=== PATIENT | female | born 1985 | race Caucasian/White ===

== ENCOUNTER 2017-05-27 07:32 | Day surgery (SDC) | payer OTHER ==
[~2017-05-27] VITALS: Ht 154.9 cm; Wt 74.9 kg
[~2017-05-27 07:32] MED LIST: ASPI81CH PO; CYCL10 PO; Camila0.35 MG PO; DILT300 PO; HYDR1TAB94 PO; METO25; NIFE10 PO; NIFE30ER PO; ONDA4ODT MM; Omeprazole20 M1
[2017-05-27] MEDS ORDERED: Adipex-P37.5 MG PO (08:26)
[2017-05-27] MEDS ORDERED: Flonase 0.05% N16 GM (08:27)
[2017-05-27] MEDS ORDERED: GABA300 PO (08:27)
[2017-05-27] MEDS ORDERED: TOPI50 PO (08:27)
[2017-05-27] MEDS ORDERED: CYCL10 PO (08:27)
[2018-03-17] MEDS ORDERED: Cyclobenzaprine5 MG PO (08:50)
[2018-03-17] MEDS ORDERED: Aspirin EC81 MG PO (08:52)
[2018-03-17] MEDS ORDERED: ALBU90OI61 INH (08:53)
[2018-03-17] MEDS ORDERED: GABA300 PO (08:54)
[2018-03-17] MEDS ORDERED: FLONASE (08:58)
[2018-03-17] MEDS ORDERED: MONT10T PO (08:58)
[2018-03-17] MEDS ORDERED: ZESTORETIC 20-251 EA PO (08:59)
[2018-04-02] MEDS ORDERED: Percocet 5-3251 EACH (11:30)
== END 2017-05-27 11:25 | disposition home or self-care (01) ==
LOC: ORSCSDS 07:32
PROVIDERS: Obstetrics & Gynecology
PROC: 0UT04ZZ Resection of Right Ovary, Percutaneous Endoscopic Approach (ICD-10-PCS; principal; 2017-05-27 08:45)
PROC: 0U5F4ZZ Destruction of Cul-de-sac, Percutaneous Endoscopic Approach (ICD-10-PCS; principal; 2017-05-27 08:45)
DX: N83.201 Unspecified ovarian cyst, right side (principal); N80.3 Endometriosis of pelvic peritoneum; J45.909 Unspecified asthma, uncomplicated; Z79.899 Other long term (current) drug therapy
CPT/HCPCS: 88305; J0171; J0690; J1100; J2250; J2405; J2710; J3010; J7120

== ENCOUNTER 2017-12-31 06:55 | Day surgery (SDC) | payer OTHER ==
[~2017-12-31] VITALS: Ht 152.4 cm; Wt 75.9 kg
[~2017-12-31 06:55] MED LIST changes: +Adipex-P37.5 MG PO; +Flonase 0.05% N16 GM; +GABA300 PO; +TOPI50 PO
[2017-12-31] MEDS ORDERED: Lisinopril2.5 MG (07:23)
== END 2017-12-31 15:38 | disposition home or self-care (01) ==
LOC: ORSCSDS 06:55
PROVIDERS: Orthopaedic Surgery
PROC: 0MRP47Z Replacement of Left Knee Bursa and Ligament with Autologous Tissue Substitute, Percutaneous Endoscopic Approach (ICD-10-PCS; principal; 2017-12-31 08:10)
PROC: 0SQD4ZZ Repair Left Knee Joint, Percutaneous Endoscopic Approach (ICD-10-PCS; principal; 2017-12-31 08:10)
DX: S83.512A Sprain of anterior cruciate ligament of left knee, initial encounter (principal); S83.242A Other tear of medial meniscus, current injury, left knee, initial encounter; S83.282A Other tear of lateral meniscus, current injury, left knee, initial encounter; I10 Essential (primary) hypertension; J45.909 Unspecified asthma, uncomplicated
CPT/HCPCS: 73560-LT; C1713; J0171; J0690; J2250; J2405; J2795; J3010; J7120

== ENCOUNTER 2018-10-16 22:25 | Observation (INO) | payer OTHER ==
[~2018-10-16] VITALS: Ht 154.9 cm; Wt 71.6 kg
[~2018-10-16 22:25] MED LIST changes: +ALBU90OI61 INH; +Aspirin EC81 MG PO; +Cyclobenzaprine5 MG PO; +FLONASE; +Lisinopril2.5 MG; +MONT10T PO; +Percocet 5-3251 EACH; +ZESTORETIC 20-251 EA PO
[2018-10-16 23:24] LABS: BASOPHILS ABSOLUTE AUTO 0.02 K/mm3 (0.00-0.23); BASOPHILS PERCENT AUTO 0 % (0-2); EOSINOPHILS ABSOLUTE AUTO 0.08 K/mm3 (0.00-0.68); EOSINOPHILS PERCENT AUTO 1 % (0-6); Hematocrit 39.3 % (33.0-51.0); Hemoglobin 13.4 g/dL (11.5-16.0); IMMATURE GRAN ABSOLUTE AUTO 0.04 K/mm3 (0.00-0.10); IMMATURE GRAN PERCENT AUTO 0 % (0-1); LYMPHOCYTES ABSOLUTE AUTO 2.25 K/mm3 (0.84-5.20); LYMPHOCYTES PERCENT AUTO 25 % (21-46); MONOCYTES PERCENT AUTO 6 % (4-13); Mean Corpuscular HGB Conc 34.1 g/dL (31.5-36.5); Mean Corpuscular Volume 85 fL (80-100); Mean Platelet Volume 9.3 fL (9.1-12.4); NEUTROPHILS ABSOLUTE AUTO 6.19 K/mm3 (1.96-9.15); NEUTROPHILS PERCENT AUTO 68 % (41-73); Platelet Count 384 K/mm3 (150-400); RDW Coefficient Variation 12.4 % (11.7-14.2); RDW Standard Deviation 38.4 fL (35.1-46.3); Red Blood Cell Count 4.62 M/mm3 (3.80-5.20); White Blood Cell Count 9.08 K/mm3 (4.00-11.30)
[2018-10-16 23:32] LABS: Source, Urine Clean Catch
[2018-10-16 23:35] LABS: Bilirubin, Urine Neg (Neg); Blood, Urine 2+ (Neg); Glucose Qualitative, Urine Neg (Neg); Ketones, Urine Neg (Neg); Leukocyte Esterase, Urine Neg (Neg); Nitrite, Urine Neg (Neg); Protein, Urine Neg (Neg); Specific Gravity, Urine 1.005 (1.003-1.022); Urobilinogen, Urine NORM (Normal)
[2018-10-16 23:45] LABS: Appearance, Urine Clear (Clear); Color, Urine Yellow (P-Yellow)
[2018-10-16 23:45] LABS: Alanine Aminotransfer (ALT/SGP 53 U/L (12-78); Albumin, Blood 3.8 g/dL (3.4-5.0); Alk Phos 125 U/L (50-136); Anion Gap 8 mmol/L (6-16); Aspartate Aminotrans (AST/SGOT 20 U/L (12-37); Bilirubin, Total 0.7 mg/dL (0.1-1.0); Blood Urea Nitrogen 11 mg/dL (8-24); Bun/Creatinine Ratio 15.4 (12.0-20.0); CO2, Blood 27 mmol/L (21-32); Calcium, Blood 8.9 mg/dL (8.5-10.1); Chloride, Blood 102 mmol/L (98-108); Creatinine, Blood 0.72 mg/dL (0.40-1.00); Globulin, Blood 3.9 g/dL (2.2-4.0); Glomerular Filtration Rate >60 (60-); Glucose, Blood 116 mg/dL (70-99); Potassium, Blood 3.2 mmol/L (3.5-5.5); Sodium, Blood 137 mmol/L (136-145); Total Protein, Blood 7.7 g/dL (6.4-8.2)
[2018-10-16 23:46] LABS: Bacteria Rare /hpf; Red Blood Cells, Urine Not Seen /hpf (0-2); Squamous Epithelial Cells Rare /hpf (Few); White Blood Cells, Urine Rare /hpf (0-5)
[2018-10-17] MEDS ORDERED: FLUO10 PO (01:41)
[2018-10-17] MEDS ORDERED: POTA10T PO (03:11)
[2018-10-17] MEDS ORDERED: MONT10T PO (03:11)
[2018-10-17] MEDS ORDERED: CYCL10 PO (03:13)
[2018-10-17] MEDS ORDERED: VITAMIN D5000 UNIT PO (03:14)
--- NOTE | 2018-10-17 06:46 | NUR ---
ADMISSION: REPORT RECIEVED FROM ED JASWANT WALTER. PT TO UNIT AT ABOUT 0300. UPON ASSESSMENT PT IS INDEPENDENT TO BATHROOM, VSS, A/O. COMPLIANS OF ABD PAIN AND TENDERNESS, REPORTS PAIN TOLERABLE AT THIS TIME. ADMISSION CHARTING COMPLETED, BLOOD CONSENT SIGNED, IV FLUIDS STARTED. WILL CTM
--- NOTE | 2018-10-17 06:48 | NUR ---
SUMMARY: NO ACUTE CHANGE SINCE ADMISSION. VSS, PT MEDICATED FOR PAIN WITH 1 MG DILAUDID. UP TO BATHROOM INDEPENDENTLY. NPO SINCE 0000, ANTIBIOTIC INFUSED. 18G IV STARTED THIS AM, NO SAFETY CONCERNS AT THIS TIME.
--- NOTE | 2018-10-17 14:18 | NUR ---
Surgical site prepped with 2% Chlorhexidine cloth wipe. History, Chart, Medications and Allergies reviewed before start of procedure. Lungs clear T/O to Auscultation. Patient confirms NPO status and agrees with scheduled surgery. Pre-Op teaching done. Pt verbalizes understanding.
--- NOTE | 2018-10-17 15:27 | NUR ---
10/17/18 1527 Delgado Bustos PT ON SCHEDULED ANTIBIOTICS
--- NOTE | 2018-10-17 16:30 | NUR ---
ASSUMING PT CARE. PT IN OR AT THIS TIME. PT REPORT FROM TOMMY MICHAUD.
--- NOTE | 2018-10-17 16:47 | NUR ---
REPORT FROM LIQUIFIED NATURAL GAS TECHNICIANJASWANT MONTGOMERY.
--- NOTE | 2018-10-17 17:10 | NUR ---
ASSISTED PT TO RR. PT VOIDS, STATES HAS SOME BURNING. WILL MONITOR. ASSISTED BACK TO BED. ICE WATER AND JELLO PROVIDED. FAMILY AT BEDSIDE.
--- NOTE | 2018-10-17 17:35 | NUR ---
PT ITCHING ALOT. WILL DISCUSS BENADRYL WITH PROVIDER.
--- NOTE | 2018-10-17 17:40 | NUR ---
ORDER FOR KATHY CHAUDHARY FROM DR DE LA TORRE.
--- NOTE | 2018-10-17 17:57 | NUR ---
PT MEDICATED WITH ABX, BENADRYL AND NORCO PER EMAR.
--- NOTE | 2018-10-17 19:06 | NUR ---
REPORT TO INGA MICHAUD.
--- NOTE | 2018-10-18 08:06 | NUR ---
SUMMARY PT RECEIVED 1 DOSE DILAUDID FOR BREAKTHROUGH PAIN DURING NIGHT. GAVE NORCO THIS AM. TOLERATING PO.IV SL. PASSED FLATUS X2.
[2018-10-18] MEDS ORDERED: Norco 5-325 Ta1 EACH PO (10:45)
[2018-10-18] MEDS ORDERED: Augmentin 875-1 EACH PO (10:46)
== END 2018-10-18 12:25 | disposition home or self-care (01) ==
LOC: ER 22:25 → SURS 22:53 → ER 10-17 02:46 → SURS 10-17 02:57
PROVIDERS: Emergency Medicine; ADMIT Surgery
PROC: 0DTJ4ZZ Resection of Appendix, Percutaneous Endoscopic Approach (ICD-10-PCS; principal; 2018-10-17 15:00)
DX: K35.33 Acute appendicitis with perforation, localized peritonitis, and gangrene, with abscess (principal)
CPT/HCPCS: 36415; 74177; 80053; 81001; 81025; 83690; 85025; 88304; 96361-59; 96365-59; 96366; 96375-59; 96376; 99285-25; A9270-GY; G0378; J1100; J1170; J1200; J2250; J2270; J2405; J2543; J2704; J2710; J3010; J7030; J7120; Q9967

== ENCOUNTER 2019-03-29 18:51 | Emergency (ER) | payer OTHER ==
[~2019-03-29] VITALS: Ht 157.5 cm; Wt 70.3 kg
[~2019-03-29 18:51] MED LIST changes: +Augmentin 875-1 EACH PO; +FLUO10 PO; +Norco 5-325 Ta1 EACH PO; +POTA10T PO; +VITAMIN D5000 UNIT PO
[2019-03-29 19:26] LABS: BASOPHILS ABSOLUTE AUTO 0.02 K/mm3 (0.00-0.23); BASOPHILS PERCENT AUTO 0 % (0-2); EOSINOPHILS ABSOLUTE AUTO 0.01 K/mm3 (0.00-0.68); EOSINOPHILS PERCENT AUTO 0 % (0-6); Hemoglobin 14.7 g/dL (11.5-16.0); IMMATURE GRAN ABSOLUTE AUTO 0.06 K/mm3 (0.00-0.10); IMMATURE GRAN PERCENT AUTO 0 % (0-1); LYMPHOCYTES ABSOLUTE AUTO 0.22 K/mm3 (0.84-5.20); LYMPHOCYTES PERCENT AUTO 2 % (21-46); MONOCYTES ABSOLUTE AUTO 0.32 K/mm3 (0.16-1.47); MONOCYTES PERCENT AUTO 2 % (4-13); Mean Corpuscular HGB 28.8 pg (26.0-34.0); Mean Corpuscular HGB Conc 33.4 g/dL (31.5-36.5); Mean Corpuscular Volume 86 fL (80-100); Mean Platelet Volume 9.6 fL (9.1-12.4); NEUTROPHILS ABSOLUTE AUTO 14.48 K/mm3 (1.96-9.15); NEUTROPHILS PERCENT AUTO 96 % (41-73); Platelet Count 479 K/mm3 (150-400); RDW Coefficient Variation 12.5 % (11.7-14.2); RDW Standard Deviation 39.7 fL (35.1-46.3); White Blood Cell Count 15.11 K/mm3 (4.00-11.30)
[2019-03-29 19:42] LABS: Alanine Aminotransfer (ALT/SGP 18 U/L (12-78); Alk Phos 116 U/L (50-136); Anion Gap 10 mmol/L (6-16); Aspartate Aminotrans (AST/SGOT 12 U/L (12-37); Bilirubin, Total 0.6 mg/dL (0.1-1.0); Blood Urea Nitrogen 15 mg/dL (8-24); Bun/Creatinine Ratio 26.1 (12.0-20.0); CO2, Blood 21 mmol/L (21-32); Calcium, Blood 8.6 mg/dL (8.5-10.1); Chloride, Blood 107 mmol/L (98-108); Creatinine, Blood 0.58 mg/dL (0.40-1.00); Globulin, Blood 3.9 g/dL (2.2-4.0); Glomerular Filtration Rate >60 (60-); Glucose, Blood 138 mg/dL (70-99); Potassium, Blood 3.2 mmol/L (3.5-5.5); Sodium, Blood 138 mmol/L (136-145); Total Protein, Blood 7.9 g/dL (6.4-8.2)
[2019-03-29 20:50] LABS: Source, Urine Clean Catch
[2019-03-29 20:58] LABS: Appearance, Urine Clear (Clear); Bilirubin, Urine Neg (Neg); Blood, Urine 2+ (Neg); Color, Urine Yellow (P-Yellow); Glucose Qualitative, Urine Neg (Neg); Ketones, Urine 1+ (Neg); Leukocyte Esterase, Urine Neg (Neg); Nitrite, Urine Neg (Neg); Protein, Urine 2+ (Neg); Specific Gravity, Urine 1.025 (1.003-1.022); Urobilinogen, Urine NORM (Normal)
[2019-03-29 21:07] LABS: Bacteria Few /hpf; Mucus Mod (0-Heavy); Squamous Epithelial Cells Mod /hpf (Few); White Blood Cells, Urine 0-2 /hpf (0-5)
[2019-03-29] MEDS ORDERED: ONDA4ODT MM (21:41)
== END 2019-03-29 22:09 | disposition home or self-care (01) ==
LOC: ER 18:51
PROVIDERS: Physician Assistant
DX: E86.0 Dehydration (principal); R11.2 Nausea with vomiting, unspecified; R10.9 Unspecified abdominal pain; D72.829 Elevated white blood cell count, unspecified; I10 Essential (primary) hypertension; Z91.040 Latex allergy status; Z91.018 Allergy to other foods; Z79.899 Other long term (current) drug therapy; Z79.82 Long term (current) use of aspirin
CPT/HCPCS: 36415; 80053; 81001; 81025; 83690; 83735; 85025; 96361; 96374; 96375; 99284-25; A9270-GY; J1200; J2405; J2765; J7120

== ENCOUNTER 2019-06-08 13:50 | Emergency (ER) | payer OTHER ==
[~2019-06-08] VITALS: Ht 154.9 cm; Wt 71.2 kg
== END 2019-06-08 17:15 | disposition home or self-care (01) ==
LOC: ER 13:50
DX: S06.0X0A Concussion without loss of consciousness, initial encounter (principal); I10 Essential (primary) hypertension; Z91.048 Other nonmedicinal substance allergy status; Z91.010 Allergy to peanuts; Z79.899 Other long term (current) drug therapy; Z79.82 Long term (current) use of aspirin; Z79.51 Long term (current) use of inhaled steroids; W22.8XXA Striking against or struck by other objects, initial encounter
CPT/HCPCS: 70450; 99284-25

== ENCOUNTER 2022-10-18 07:17 | Day surgery (SDC) | payer OTHER ==
[~2022-10-18] VITALS: Ht 154.9 cm; Wt 81.6 kg
[2022-10-18] MEDS ORDERED: DESL5 (07:43)
[2022-10-18] MEDS ORDERED: AZELASTINE137 MCG/01 (07:43)
[2022-10-18] MEDS ORDERED: FLUT1DIS2 (07:43)
[2022-10-18] MEDS ORDERED: ESOM20 (07:43)
[2022-10-18] MEDS ORDERED: OMEGA-3 + D SO1 EACH (07:44)
[2022-10-18] MEDS ORDERED: Flonase 0.05% N16 GM (07:44)
[2022-10-18] MEDS ORDERED: ALDACTONE100 MG (07:45)
[2022-10-18] MEDS ORDERED: TIZA4 (07:45)
[2022-10-18 09:44] VITALS: BP 168/109
--- NOTE | 2022-10-18 12:07 | NUR ---
10/18/22 1207 LOUIS BUCK PT WAS DIFFICULT TO SEDATE, EGD STARTED 0845 RN CALLED FOR SUPPORT TO HELP HOLD PT: PT STARTED TO DESATURATE TO 87% BUT MAY OF BEEN INACCURATE DUE TO PT PULLING PULSE OX OFF. PT WAS MAKING SOUNDS THAT RESEMBLED LARYNGOSPAM WARNING SIGNS / DR CONTRERAS PULLED SCOPE OUT AND NASAL TRUMPET INSERTED AND RN PAGED ANESTHESIA TO ENDO ROOM 1. DR POOLE CAME IN AT 0848 AND TOOK OVER PT SEDATION FOR REMAINER OF CASE.
== END 2022-10-18 09:46 | disposition home or self-care (01) ==
LOC: ORSCSDS 07:17
PROVIDERS: Internal Medicine Gastroenterology
PROC: 0DB98ZX Excision of Duodenum, Via Natural or Artificial Opening Endoscopic, Diagnostic (ICD-10-PCS; principal; 2022-10-18 08:30)
PROC: 0DB78ZX Excision of Stomach, Pylorus, Via Natural or Artificial Opening Endoscopic, Diagnostic (ICD-10-PCS; principal; 2022-10-18 08:30)
PROC: 0DB58ZX Excision of Esophagus, Via Natural or Artificial Opening Endoscopic, Diagnostic (ICD-10-PCS; principal; 2022-10-18 08:30)
DX: R10.13 Epigastric pain (principal); K29.70 Gastritis, unspecified, without bleeding; R74.8 Abnormal levels of other serum enzymes; K20.90 Esophagitis, unspecified without bleeding; I10 Essential (primary) hypertension; J45.909 Unspecified asthma, uncomplicated; Z79.899 Other long term (current) drug therapy; E66.9 Obesity, unspecified; Z68.34 Body mass index [BMI] 34.0-34.9, adult
CPT/HCPCS: 88305; 88342; J2250; J2704; J7120

== ENCOUNTER → 2023-03-27 | Outpatient (CLI) | payer OTHER ==
[~2023-03-27] MED LIST changes: +ALDACTONE100 MG; +AZELASTINE137 MCG/01; +DESL5; +ESOM20; +FLUT1DIS2; +OMEGA-3 + D SO1 EACH; +TIZA4
[2023-03-27 14:52] LABS: BASOPHILS ABSOLUTE AUTO 0.05 K/mm3 (0.00-0.23); BASOPHILS PERCENT AUTO 1 % (0-2); EOSINOPHILS ABSOLUTE AUTO 0.54 K/mm3 (0.00-0.68); EOSINOPHILS PERCENT AUTO 7 % (0-6); Hematocrit 38.9 % (33.0-51.0); Hemoglobin 13.2 g/dL (11.5-16.0); IMMATURE GRAN ABSOLUTE AUTO 0.03 K/mm3 (0.00-0.10); IMMATURE GRAN PERCENT AUTO 0 % (0-1); LYMPHOCYTES ABSOLUTE AUTO 2.53 K/mm3 (0.84-5.20); LYMPHOCYTES PERCENT AUTO 32 % (21-46); MONOCYTES PERCENT AUTO 6 % (4-13); Mean Corpuscular HGB 28.1 pg (26.0-34.0); Mean Corpuscular HGB Conc 33.9 g/dL (31.5-36.5); Mean Corpuscular Volume 83 fL (80-100); NEUTROPHILS ABSOLUTE AUTO 4.32 K/mm3 (1.96-9.15); NEUTROPHILS PERCENT AUTO 54 % (41-73); Platelet Count 415 K/mm3 (150-400); RDW Coefficient Variation 13.1 % (11.7-14.2); RDW Standard Deviation 39.4 fL (35.1-46.3); Red Blood Cell Count 4.69 M/mm3 (3.80-5.20); White Blood Cell Count 7.97 K/mm3 (4.00-11.30)
== END | disposition home or self-care (01) ==
LOC: LAB SHORT 13:37 → LAB 13:37
PROVIDERS: Family Medicine
DX: R53.83 Other fatigue (principal)
CPT/HCPCS: 82306; 84443; 85025

== ENCOUNTER 2023-12-19 10:22 | Day surgery (SDC) | payer OTHER ==
[~2023-12-19] VITALS: Ht 154.9 cm; Wt 84.0 kg
[~2023-12-19 10:22] MED LIST changes: +ALBU90OI INH; -ALBU90OI61 INH; +ALDACTONE100 MG PO; -AZELASTINE137 MCG/01; +AZELASTINE137 MCG/06; -DESL5; +FLONASE ALLERG9.9 M2; -FLUT1DIS2; +FLUT1DIS5 INH; +Lactated Ringer's 1,000 ML ONE; -TIZA4; +TIZA4 PO; +Ventolin5 MG/1 ML INH; +[UNRECOGNIZED DRUG - CODE] PO
[2023-12-19] MEDS ORDERED: Lactated Ringer's 1,000 ML IV ONE ×3 (10:36→14:53)
[2023-12-19] MEDS ORDERED: CeFAZolin Sodium 2,000 MG VIAL ONE (10:36)
[2023-12-19] MEDS ORDERED: NS 50 ML IV ONE (10:36)
[2023-12-19] MEDS ORDERED: LOSA25 (11:09)
[2023-12-19] MEDS ORDERED: propofoL 20 ML IV ONE (11:20)
[2023-12-19] MEDS ORDERED: FentaNYL Citrate 50 MCG/ML 2 ML Injection ONE ×3 (11:22→15:47)
[2023-12-19] MEDS ORDERED: Midazolam HCl 1MG / ML 2ML Vial ONE (12:36)
[2023-12-19] MEDS ORDERED: Dexamethasone Sod Phos 10 MG/ML 1ML VIAL ONE (12:53)
[2023-12-19] MEDS ORDERED: Ondansetron HCl 2 MG / ML 2ML Vial ONE ×2 (12:53→15:13)
[2023-12-19] MEDS ORDERED: Ketorolac Tromethamine 30mg Vial ONE (13:04)
--- NOTE | 2023-12-19 13:25 | NUR ---
12/19/23 1325 Preethi Thompson FLUID DEFICIT ON 0 NOTED ON MYOSURE. MD NOTIFIED.
[2023-12-19] MEDS ORDERED: OxyCODONE 5 mg/Acetamin 325 mg TABLET ONE (14:50)
--- NOTE | 2023-12-19 15:33 | NUR ---
12/19/23 1533 TAMMI ELLIS Carin PT HYPERTENSIVE AT BASELINE IN PREOP - UPON ADMISSION TO PACU AND STEP DOWN UNIT, PT CONTINUED TO BE HYPERTENSIVE, WITH BP READINGS IN THE 150-170'S SYSTOLIC, AND 88-118 DIASTOLIC. AT BASELINE (PRE OP ) PT HAD BP READING OF 176/116 AND 170/109. PT IS ON LOWEST DOSE OF [place] PER HER REPORT. SHE HAS ALLERGY TO METOPROLOL AND LISINOPRIL. SHE BELIEVES SHE HAS TRIED AMLODIPINE BUT IT NOT SURE. HAS BEEN ON SPIRONOLACTONE ALSO. PT INFORMED US SHE HAS PRIMARY CARE APPT TOMORROW OUTPATIENT TO ADDRESS THIS ISSUE. DR. DONALDSON (ANE) CONSULTED HE ORIGICALLY WANTED DIASTOLIC UNDER 100. PT'S IS BACK AT BASELINE AND HE WAS CONSULTED. HE DID CONFIRM PT IS OK TO DISCHARGE IF SHE IS AT BASELINE AND SEEING PRIMARY CARE TOMORROW. PT HAS BEEN MEDCATED FOR PAIN WITH IV FENTANYL AND PO PAIN MEDS. TOLERATING PO INTAKE AND DC INSTRUCTIONS PERFORMED WITH ALL QUESTIONS ASKED AND ANSWERED. ROOM WAS DARKENED AND PT ENGAGED IN CONTROLLED BREATHING AND RELAXATION TECHNIQUES WITH NO SUBSTANTIAL DIFFERENCE IN BP. PT WILL BE DC VIA WC TO VEHICLE WITH SPOUSE AND WAS EDUCATED TO FOLLOW UP WITH PCP TOMORROW.
[2023-12-19 15:54] VITALS: BP 176/112
== END 2023-12-19 16:11 | disposition home or self-care (01) ==
LOC: ORSCSDS 10:22
PROVIDERS: Obstetrics & Gynecology
PROC: 0UDB8ZX Extraction of Endometrium, Via Natural or Artificial Opening Endoscopic, Diagnostic (ICD-10-PCS; principal; 2023-12-19 11:30)
PROC: 0U5B8ZZ Destruction of Endometrium, Via Natural or Artificial Opening Endoscopic (ICD-10-PCS; principal; 2023-12-19 11:30)
DX: R51.9 Headache, unspecified (principal); N92.1 Excessive and frequent menstruation with irregular cycle; D50.0 Iron deficiency anemia secondary to blood loss (chronic); N94.6 Dysmenorrhea, unspecified; N94.10 Unspecified dyspareunia; I10 Essential (primary) hypertension; J45.909 Unspecified asthma, uncomplicated; K21.9 Gastro-esophageal reflux disease without esophagitis; Z68.35 Body mass index [BMI] 35.0-35.9, adult; Z79.899 Other long term (current) drug therapy; Z79.51 Long term (current) use of inhaled steroids; Z79.82 Long term (current) use of aspirin; Z88.1 Allergy status to other antibiotic agents; Z88.8 Allergy status to other drugs, medicaments and biological substances; Z91.010 Allergy to peanuts; Z91.048 Other nonmedicinal substance allergy status
CPT/HCPCS: 88305; 99283; A9270; J0690; J1100; J1885; J2250; J2405; J2704; J3010; J7120